=== PATIENT | female | born 1935 | race Caucasian/White ===

== ENCOUNTER 2016-11-12 12:49 | Emergency (ER) | payer MEDICARE, OTHER ==
[2016-11-12 13:10] VITALS: BP 149/77
--- NOTE | 2016-11-12 13:48 | EDM.PDOC ---
ED HPI GENERAL MEDICAL PROBLEM - General Chief Complaint: General Stated Complaint: pain post surgery Time Seen by Provider: 11/12/16 13:10 Source of Information: Reports: Patient, Family History Limitations: Reports: No Limitations - History of Present Illness INITIAL COMMENTS - FREE TEXT/NARRATIVE: Patient with history of surgical endarterectomy Left Carotid 3 days ago with release from hospital yesterday due to urinary retention. She states last evening noted pain in the left elbow region radiating to the left axillary region and brest region. She states pain on scale of 6. She indicated she used a warm rice bag last evening and awakened 4 hours later to sharp stabbing pain across her left breast and resolution of the left elbow discomfort. She denies chest pain, diaphoresis or chest pressure at this time and ambulates in to ER for evaluation. 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: Reports: Aspirin, Home Treatments (Heat Treatment) Left Breast Pain Score (Numeric/FACES): 4 - Related Data Allergies Allergy/AdvReac Type Severity Reaction Status Date / Time No Known Allergies Allergy Verified 11/12/16 12:50 Home Meds: Home Meds Aspirin [Ecotrin] 81 mg PO DAILY 11/12/16 [History] Lisinopril 40 mg PO DAILY 11/12/16 [History] Multivitamin with Minerals [Multiple Vitamin] 1 tab PO DAILY 11/12/16 [History] Triamterene/Hydrochlorothiazid [Triamterene-HCTZ 37.5-25 MG] 1 tab PO DAILY [History] oxyCODONE HCl/Acetaminophen [oxyCODONE-Acetaminophen 5-325] 1 - 2 tab PO Q6H PRN 11/12/16 [History] Past Medical History HEENT History: Reports: Cataract Cardiovascular History: Reports: Hypertension Gastrointestinal History: Reports: None [employer]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: , 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 Musculoskeletal History: Reports: Fracture Oncologic (Cancer) History: Reports: Other (See Below) Other Oncologic History: skin Dermatologic History: Reports: Eczema, Other (See Below) Other Dermatologic History: 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 - Past Surgical History Head Surgeries/Procedures: Reports: Other (See Below) (Recent Left Carotid Endarterectomy) HEENT Surgical History: Reports: Cataract Surgery, Tonsillectomy Cardiovascular Surgical History: Reports: Carotid Endarterectomy, Varicose GI Surgical History: Reports: Colonoscopy, Polypectomy Social & Family History - Family History Family Medical History: Noncontributory - Tobacco Use Smoking Status *Q: Never Smoker - Tobacco Core Measures Tobacco Use/Smoking Within Last 30 Days: No - Caffeine Use Caffeine Use: Reports: None - Alcohol Use Alcohol Use History: No - Recreational Drug Use Recreational Drug Use: No - Living Situation & Occupation Living situation: Reports: , with Spouse Occupation: Retired ED ROS GENERAL - Review of Systems Review Of Systems: See Below Constitutional: Reports: No Symptoms. Denies: Fever, Chills, Malaise, Weakness , Fatigue HEENT: Reports: Other (Left Lteral neck post op pain) Respiratory: Reports: No Symptoms. Denies: Shortness of Breath, Wheezing, Pleuritic Chest Pain, Cough Cardiovascular: Reports: Chest Pain, Other (Anterior breast pain-burning sensation) Endocrine: Reports: No Symptoms GI/Abdominal: Reports: No Symptoms (Eating and drinking well) : Reports: Urinary Retention (In hospital/no residual since discharge.) Musculoskeletal: Reports: Neck Pain, Arm Pain, Muscle Pain, Muscle Stiffness Skin: Reports: Other (Incision clean and dry) Neurological: Reports: No Symptoms Psychiatric: Reports: No Symptoms Hematologic/Lymphatic: Reports: No Symptoms Immunologic: Reports: No Symptoms ED EXAM, GENERAL - Physical Exam Exam: See Below Exam Limited By: No Limitations General Appearance: Alert, WD/WN, No Apparent Distress, Anxious Eye Exam: Bilateral Eye: EOMI, PERRL Ears: Normal External Exam, Normal Canal, Hearing Grossly Normal, Normal TMs Ear Exam: Bilateral Ear: Auricle Normal, Canal Normal, TM normal Nose: Normal Inspection, Normal Mucosa, No Blood Throat/Mouth: Normal Inspection, Normal Lips, Normal Teeth, Normal Gums, Normal Oropharynx, Normal Voice, No Airway Compromise Head: Atraumatic, Normocephalic Neck: Supple, Tender Lateral, Other (Post operative incision clean and dry withot redness heat or exudate.). No: Full Range of Motion Respiratory/Chest: No Respiratory Distress, Lungs Clear, Normal Breath Sounds, No Accessory Muscle Use, Chest Non-Tender Cardiovascular: Normal Peripheral Pulses, Regular Rate, Rhythm, No Edema, No Murmur, No Rub Peripheral Pulses: 0: Carotid (L) (Difficult to asceratin secondary to surgical incision and tenderness), 2+: Carotid (R), Brachial (L), Brachial (R), Radial (L ), Radial (R), Dorsalis Pedis (L), Dorsalis Pedis (R) GI/Abdominal: Soft, Non-Tender (Female) Exam: Deferred Rectal (Female) Exam: Deferred Back Exam: Normal Inspection, Full Range of Motion Extremities: Normal Inspection, Normal Range of Motion, Non-Tender, No Pedal Edema, Normal Capillary Refill Neurological: Alert, Oriented, CN II-XII Intact, Normal Cognition, Normal Gait, Normal Reflexes, No Motor/Sensory Deficits Psychiatric: Normal Affect, Normal Mood Skin Exam: Warm, Dry, Intact, Normal Color, No Rash Lymphatic: No Adenopathy EKG INTERPRETATION EKG Date: 11/12/16 Course - Vital Signs Last Recorded V/S: Last Vital Signs Temp 37.7 C 11/12/16 13:08 Pulse 79 11/12/16 13:08 Resp 18 11/12/16 13:08 BP 149/77 H 11/12/16 13:08 Pulse Ox 95 11/12/16 13:08 - Orders/Labs/Meds Orders: Active Orders 24 hr Category Date Time Status EKG Documentation Completion [RC] STAT Care 11/12/16 14:32 Active Chest 2V [CR] Routine Exams 11/12/16 Taken Labs: Laboratory Tests 11/12/16 11/12/16 11/12/16 Range/Units 13:21 13:21 16:55 WBC 9.5 (5.0-10.0) 10^3/uL RBC 4.20 (4.00-5.50) 10^6/uL Hgb 12.5 (12.0-16.0) g/dL Hct 38.6 (37.0-47.0) % MCV 91.9 (82.0-94.0) fL MCH 29.8 (27.0-32.0) pg MCHC 32.4 L (33.0-38.0) g/dL RDW Coeff of Natalie 13.8 (11.0-15.0) % Plt Count 259 (150-400) 10^3/uL Neut % (Auto) 64.5 (35-85) % Lymph % (Auto) 21.7 (10-55) % [place] % (Auto) 11.6 (0-16) % Eos % (Auto) 2.0 (0-5) % Baso % (Auto) 0.2 (0-3) % Neut # (Auto) 6.12 (1.80-7.00) 10^3/uL Lymph # (Auto) 2.06 (1.00-4.80) 10^3/uL [place] # (Auto) 1.10 H (0.00-0.80) 10^3/uL Eos # (Auto) 0.19 (0.00-0.45) 10^3/uL Baso # (Auto) 0.02 10^3/uL Sodium 140 (136-145) mEq/L Potassium 4.6 (3.5-5.0) mEq/L Chloride 102 (98-106) mEq/L Carbon Dioxide 31 (21-32) mmol/L BUN 30 H (7-18) mg/dL Creatinine 1.1 H (0.6-1.0) mg/dL Est Cr Clr Drug Dosing 38.82 mL/min Estimated GFR (MDRD) 48 L (>=60) mL/min Glucose 93 (75-99) mg/dL Calcium 9.9 (8.4-10.1) mg/dL Magnesium 2.2 (1.8-2.4) mg/dL Total Bilirubin 0.5 (0.0-1.0) mg/dL AST 23 (15-37) U/L ALT 22 (12-78) U/L Alkaline Phosphatase 82 (46-116) U/L Troponin I 0.028 0.030 (0.00-0.06) ng/mL C-Reactive Protein 10.4 H (0.2-0.8) mg/dL Total Protein 7.5 (6.4-8.2) g/dL Albumin 3.4 (3.4-5.0) g/dL - Radiology Interpretation Free Text/Narrative:: CXR report from Radiology no acute changes Departure - Departure Time of Disposition: 17:29 Disposition: Home, Self-Care 01 Condition: Good Clinical Impression: Muscle strain of chest wall - Discharge Information Referrals: Love Tripathi TUBING SUPERVISOR [Primary Care Provider] - Forms: ED Department Discharge Additional Instructions: As per discharge PCP in [place], reassurance and continue treatment plan. Call 911 and Return to ER immediately if S/S return. chest pain or diaphoresis. MLP Sign Off - Signature Requirements MLP Sign Off: No - Problem List & Annotations (1) Muscle strain of chest wall SNOMED Code(s): 853393506 Code(s): S29.011A - STRAIN OF MUSCLE AND TENDON OF FRONT WALL OF THORAX, INIT Status: Acute Current Visit: Yes Qualifiers: Encounter type: initial encounter Qualified Code(s): S29.011A - Strain of muscle and tendon of front wall of thorax, initial encounter - My Orders Last 24 Hours: My Active Orders 11/12/16 Chest 2V [CR] Routine 11/12/16 14:32 EKG Documentation Completion [RC] STAT - Assessment/Plan Last 24 Hours: My Active Orders 11/12/16 Chest 2V [CR] Routine 11/12/16 14:32 EKG Documentation Completion [RC] STAT Assessment:: Patient observation for repeat Troponin in 3 hours. Denies discomfort or pain at this time. Refuses medications or IV. Telemetry NSR. Encouraged Fluids. 1700 Troponin WNL. Telemetry NSR without ectopy. Probable muscle strain. Patient agrees with discharge home. Plan: Discharge to F/U prn-return of discomfort . Advised medication and fluids as prior to discharge from [facility].
== END 2016-11-12 17:42 | disposition home or self-care (01) ==
LOC: CC.ED 12:49
DX: S29.011A Strain of muscle and tendon of front wall of thorax, initial encounter (principal); I10 Essential (primary) hypertension; Z79.82 Long term (current) use of aspirin; X58.XXXA Exposure to other specified factors, initial encounter
CPT/HCPCS: 36415; 71020; 80053; 83735; 84484; 85025; 86140; 93005; 93010; 99284; 99285